=== PATIENT | female | born 1955 | race Caucasian/White ===

== ENCOUNTER 2017-09-17 12:42 | Emergency (ER) | payer OTHER ==
[2017-09-17] MEDS ORDERED: 0.9 % SODIUM CHLORIDE 1,000 ML BAG IV ONE (13:03)
[2017-09-17] MEDS ORDERED: MAGNESIUM HYDROXIDE/AL HYDROX 30 ML, LIDOCAINE VISC 2% 200 MG PO ONE ×2 (13:03)
[2017-09-17] MEDS ORDERED: ONDANSETRON HCL IV 4 MG/2 ML VIAL IV ONE (13:03)
--- NOTE | 2017-09-17 13:09 | Emergency Department Record ---
History of Present Illness - General Chief Complaint: Abdominal Pain Stated Complaint: ABD PAIN Time Seen by Provider: 09/17/17 12:59 Source: Patient Mode of Arrival: Ambulatory Limitations: No limitations - History of Present Illness Initial Comments: The patient is here due to AP for about 2 months. She has had a vague mild upper abdominal aching off and on and today it got worse. Now she is having spasms of sharp stabbing pain in the epigastric and RUQ area. She is nauseated but has not vomited and has had no diarrhea or fever. The patient has had her GB removed and states the pain is similar to prior to the surgery. She denies any other abdominal surgeries. MD Complaint: Abdominal pain Onset/Timin -: Month(s) Location: Epigastric, RUQ Radiation: None Migration to: No migration Quality: Aching Consistency: Constant Improves With: Nothing Worsens With: Nothing Associated Symptoms: Denies other symptoms - Related Data Patient : No Hx Age of Menopause: 54 Allergies Allergy/AdvReac Type Severity Reaction Status Date / Time red dye Allergy Unknown Unverified 09/17/17 11:14 Travel Screening - Travel/Exposure Within Last 30 Days Have you traveled within the last 30 days?: No - Travel/Exposure Within Last Year Have you traveled outside the [place] in the last year?: No Review of Systems Constitutional: Denies: Chills, Fever Eyes: Denies: Eye discharge ENT: Denies: Congestion Respiratory: Denies: Cough Cardiovascular: Denies: Chest pain Endocrine: Denies: Fatigue Gastrointestinal: Reports: Abdominal pain, Nausea. Denies: Vomiting Genitourinary: Denies: Dysuria Musculoskeletal: Denies: Back pain Past Medical History - SOCIAL HISTORY Smoking Status: Never smoker - RESPIRATORY Hx Respiratory Disorders: Yes Hx Asthma: Yes - CARDIOVASCULAR Hx Cardio Disorders: No - NEURO Hx Neuro Disorders: Yes Hx Headaches: Yes Hx of Migraines: Yes - GI Hx GI Disorders: Yes Hx Reflux: Yes Hx Hiatal Hernia: Yes Comment:: dysphagia - Hx Genitourinary Disorders: No - ENDOCRINE Hx Endocrine Disorders: Yes Hx Thyroid Disease: Yes Comment:: Hashimotos disease - MUSCULOSKELETAL Hx Musculoskeletal Disorders: No - PSYCH Hx Psych Problems: Yes Hx Anxiety: Yes - HEMATOLOGY/ONCOLOGY Hx Hematology/Oncology Disorders: No Family Medical History Any Significant Family History?: No Family Hx Comment (NOT TO BE USED IN PLACE OF ITEMS BELOW): pt. adopted Physical Exam - General General Appearance: Alert, Oriented x3, Cooperative, No acute distress - Head Head exam: Atraumatic, Normocephalic - Eye Eye exam: Normal appearance, PERRL - Neck Neck exam: Normal inspection, Full ROM. negative: Tenderness - Respiratory Respiratory exam: Normal lung sounds bilaterally. negative: Respiratory distress - Cardiovascular Cardiovascular Exam: Regular rate, Normal rhythm, Normal heart sounds - GI/Abdominal GI/Abdominal exam: Soft, Tenderness (There is significant RUQ and epigastric tenderness.). negative: Guarding, Organomegaly, Pulsatile mass, Rebound, Rigid - Extremities Extremities exam: Normal inspection, Full ROM, Normal capillary refill. negative: Tenderness - Neurological Neurological exam: Alert. negative: Motor sensory deficit Course Vital Signs 09/17/17 12:44 Temperature 98.4 F Pulse Rate 93 H Respiratory 18 Rate Blood Pressure 147/80 Pulse Ox 96 - Reevaluation(s) Reevaluation #1: The patient is doing better at this time. Her pain is well controlled and she is resting comfortably. I did discuss the CT report and the need for admission to a larger hospital. The patient did pick [facility] [place] so we will make contact with Dr. Mendes. 09/17/17 15:29 Reevaluation #2: I did discuss the case with Dr. Mendes and he would like the patient to be transferred to the ER at [facility] [place] for admission and further evaluation. 09/17/17 15:35 Reevaluation #3: I did discuss the case with Dr. Gipson in the ED at [facility] [place] and he does accept the patient in an ER to ER transfer. 09/17/17 15:38 Medical Decision Making - Data Complexity MDM Data: Labs Ordered and/or Reviewed, X-Ray Ordered and/or Reviewed - Lab Data Result diagrams: 09/17/17 13:15 09/17/17 13:15 - Radiology Data Radiology results: Report reviewed (CT: Dilated biliary tree with no mass or abscess. ) Disposition Disposition: Transfer Clinical Impression: Biliary obstruction Disposition: Acute Care Hospital Transfer Transfer To: [facility] [place] Reason For Transfer: Surgery Accepting Physician: Cinthya Time Discussed w/Accepting Physician: 15:36 Condition: (2) Stable Forms: Patient Portal Access Time of Disposition: 15:36 Quality - Quality Measures Quality Measures: N/A - Blood Pressure Screening View Details: Yes Does Patient Have Any of the Following: No Blood Pressure Classification: Pre-Hypertensive BP Reading Systolic Measurement: 147 Diastolic Measurement: 80 Screening for High Blood Pressure: < Pre-Hypertensive BP, F/U Documented > [ [id number]] Pre-Hypertensive Follow-up Interventions: Referral to alternative/primary care provider.
[2017-09-17 13:32] LABS: BASO % 0.3 % (0-6); EOS % 3.8 % (0-6); GRAN % 73.7 % (47-80); HEMATOCRIT 39.3 % (35.0-47.0); HEMOGLOBIN 12.8 gm/dl (11.6-16.0); LYMPH % 15.1 % (16-45); MEAN CELL VOLUME 86.4 fl (81-97); MEAN CORPUSCULAR HEMOGLOBIN 28.1 pg (27-33); MEAN CORPUSCULAR HGB CONC 32.6 g/dl (32-36); MEAN PLATELET VOLUME 10.8 fl (7.4-10.4); MONO % 7.1 % (0-9); PLATELET COUNT 262 K/uL (130-400); RED BLOOD COUNT 4.55 M/uL (3.80-5.40); RED CELL DISTRIBUTION WIDTH 13.9 % (11.5-14.5); WHITE BLOOD COUNT W/O DIFF 9.6 K/uL (4.2-12.2)
[2017-09-17 13:46] LABS: BLOOD UREA NITROGEN 13 mg/dL (8-23); CREATININE 0.7 mg/dL (0.5-0.9); EST GLOMERULAR FILTRATION RATE > 60 mL/min; TOTAL PROTEIN 7.2 g/dL (6.6-8.7)
[2017-09-17] MEDS ORDERED: SUCRALFATE 1 G/10 ML UD PO ONE (13:46)
[2017-09-17 13:49] LABS: GLUCOSE,RANDOM 123 mg/dL (74-109)
[2017-09-17 13:51] LABS: ALBUMIN 4.4 g/dL (4.0-5.0); ALKALINE PHOSPHATASE 426 U/L (35-104); ALT/SGPT 269 U/L (<33); AST/SGOT 303 U/L (10.0-35.0); BILIRUBIN,DIRECT 0.8 mg/dL (0-0.3); LIPASE 34 U/L (13-60)
[2017-09-17] MEDS ORDERED: HYDROMORPHONE HCL 2 MG/ML VIAL IVP ONE (14:02)
--- NOTE | 2017-09-18 13:55 | CT SCAN REPORT ---
EXAM: EMERGENCY CT OF THE ABDOMEN AND PELVIS WITH CONTRAST HISTORY: ABDOMINAL PAIN BOTH ACHING AND SHARP, OFF AND ON FOR SEVERAL MONTHS. CHOLECYSTECTOMY. TECHNIQUE: Axial CT scan of the abdomen and pelvis was performed following both oral and IV contrast administration utilizing a dose of 100 ml of Omnipaque 300 for the IV contrast. Comparison: CT abdomen and pelvis 12/04/13. FINDINGS: The gallbladder is not identified consistent with the surgical history. There is quite prominent dilatation of the common duct measuring up to about 2 cm in diameter. It measured up to about 1.4 cm previously. The dilated common duct can be followed from the osmar down well into the head of the pancreas where it gradually tapers leading to the ampulla. Minimal central intrahepatic biliary dilatation as well. Correlation with serum bilirubin is suggested and depending on the clinical setting, follow-up MRCP may be useful. There is some mild periportal edema as well today. No focal hepatic mass evident. No definite splenic, adrenal, pancreatic, or right renal mass identified. There is a 2.7 cm low attenuation mass laterally in the left kidney with a CT density of 11 consistent with a cyst. This was present previously as well. There is a small soft tissue density in the left mid abdomen just lateral to the inferior tip of the spleen which is probably a small accessory spleen and was present previously as well appearing unchanged in size again measuring about 11 mm in diameter. There is minor diverticulosis in the colon, but no diverticulitis evident. The appendix is visualized and appears negative with no appendicitis evident. No free intraperitoneal air or free intraperitoneal fluid identified. Small periumbilical anterior abdominal wall hernia containing adipose tissue, but no bowel. Prominent facet joint arthropathy in the lower lumbar spine. Mild lumbar curve to the left. Oral contrast given has passed into the mid jejunum, but has not passed throughout the small bowel or into the colon. This may represent a mild ileus. IMPRESSION: 1. POSTOP CHOLECYSTECTOMY. BILIARY DILATATION DETAILED ABOVE. CORRELATION WITH SERUM BILIRUBIN SUGGESTED AND FOLLOW-UP MRCP MAY BE USEFUL. 2. MILD PERIPORTAL EDEMA. 3. PROBABLE SMALL ACCESSORY SPLEEN ON THE LEFT BEFORE. 4. APPROXIMATELY 2.7 CM LEFT RENAL CYST. 5. MINOR DIVERTICULOSIS IN THE COLON, BUT NO DIVERTICULITIS EVIDENT. 6. SMALL PERIUMBILICAL ANTERIOR ABDOMINAL WALL HERNIA CONTAINING ADIPOSE TISSUE , BUT NO BOWEL. 7. DEGENERATIVE CHANGE IN THE SPINE WITH A MILD LUMBAR LEVOSCOLIOSIS. JOB NUMBER: [id number] [facility]
== END 2017-09-17 16:10 | disposition short-term general hospital (02) ==
LOC: ER 12:42
DX: K83.1 Obstruction of bile duct (principal); R10.13 Epigastric pain; R11.0 Nausea; R05 Cough
CPT/HCPCS: 99285 ×2; 96374; 96375; 83690; 85025; 80076; 80048; 71046; 74177; Q9967; J2405; J1170; J7030